=== PATIENT | female | born 1990 | race Caucasian/White ===

== ENCOUNTER 2022-07-06 20:18 | Emergency (ER) | payer MEDICAID ==
[~2022-07-06] VITALS: Ht 160 cm; Wt 120.0 kg
[2022-07-06] MEDS ORDERED: OMEPRAZOLE20 MG PO (21:56)
[2022-07-06] MEDS ORDERED: BUPRENORPHIN2 MG SL (21:58)
[2022-07-06 22:52] LABS: URINE BILIRUBIN - DIPSTICK NEGATIVE (NEGATIVE); URINE BLOOD DIPSTICK NEGATIVE (NEGATIVE); URINE COLOR YELLOW; URINE GLUCOSE - DIPSTICK NEGATIVE (NEGATIVE); URINE KETONE NEGATIVE (NEGATIVE); URINE LEUK ESTERASE NEGATIVE (NEGATIVE); URINE PH 6.5 (4.5-8.0); URINE PROTEIN - DIPSTICK NEGATIVE (NEG-TRACE); URINE SPECIFIC GRAVITY 1.025; URINE UROBILINOGEN - DIPSTICK 0.2 E.U./dL (0.2)
[2022-07-06 22:57] LABS: URINE NITRITE - DIPSTICK NEGATIVE (Negative)
[2022-07-06] MEDS ORDERED: PAXLOVID PO (23:12)
[2022-07-06 23:19] LABS: HCG SERUM/URINE (NEG/POS) NEGATIVE (NEGATIVE)
[2022-07-07] MEDS ORDERED: FIORICET PO (00:08)
[2022-07-07] MEDS ORDERED: NAPROXEN500 MG PO (00:25)
[2022-07-07 00:40] VITALS: BP 132/78
== END 2022-07-07 00:40 | disposition home or self-care (01) ==
LOC: ED 20:18
PROVIDERS: Emergency Medicine
DX: U07.1 COVID-19 (principal); R51.9 Headache, unspecified